=== PATIENT | male | born 1985 | race Caucasian/White ===

== ENCOUNTER 2019-07-27 15:54 | Emergency (ER) | payer MEDICAID ==
[~2019-07-27] VITALS: Ht 177.8 cm; Wt 100.5 kg
[2019-07-27 16:22] VITALS: BP 128/76
== END 2019-07-27 18:12 | disposition home or self-care (01) ==
LOC: ER 15:57
DX: M77.8 Other enthesopathies, not elsewhere classified (principal)
CPT/HCPCS: 73080; 99283